=== PATIENT | male | born 1955 | race Caucasian/White ===

== ENCOUNTER 2021-02-24 07:50 | Emergency (ER) | payer MEDICARE, OTHER ==
[2021-02-24 08:09] VITALS: BP 144/87
--- NOTE | 2021-02-24 09:30 | ED Physician Documentation ---
History of Present Illness - Stated complaint Stated Complaint: LT EYE PX - Chief complaint Chief Complaint: Heent - History obtained from History obtained from: Patient - Additonal information Additional information: 65-year-old man with past medical history of left eye blown pupil presents with left eye pain after scraping it with a branch a few days ago. He also has new swelling to the lower eyelid has become progressively more painful, gradual in onset. Denies new onset photophobia or difficulty moving the eye. Only mild irritation to the eye itself. More pain in the eyelid. Denies fever, abnormal discharge Review of Systems Eyes: reports: Irritation PD PAST MEDICAL HISTORY - Present Medications Home Medications: Ambulatory Orders Medication Instructions Recorded Confirmed Mineral Oil/Petrolatum,White 3.5 gm OP QPM #1 bottle 02/24/21 [Lubricant Pm Eye Ointment] Ofloxacin 0.3% Ophth Drops 1 drops OPTH Q4H #5 ml 02/24/21 [Ocuflox 0.3% Ophth Drops] - Allergies Allergies/Adverse Reactions: Allergies Allergy/AdvReac Type Severity Reaction Status Date / Time No Known Drug Allergies Allergy Verified 02/24/21 08:04 PD ED PE NORMAL - Vitals Vital signs reviewed: Yes - General General: Alert and oriented X 3, No acute distress, Well developed/nourished - HEENT HEENT: Atraumatic, PERRL, EOMI, Other (Left eye with 4 mm nonreactive pupil. Patient states this is at baseline. Extraocular movements intact. No abnormal discharge. Fluorescein exam with mild increased uptake to 3 o'clock position indicating a corneal abrasion. Hordeolum evident to lateral lower eyelid) - Derm Derm: Normal color, Warm and dry - Neuro Neuro: Alert and oriented X 3 - Psych Psych: Normal mood, Normal affect Results - Vitals Vitals: Vital Signs - 24 hr 02/24/21 08:04 Temperature 36.8 C Heart Rate 64 Respiratory 17 Rate Blood Pressure 144/87 H O2 Saturation 96 Oxygen O2 Source Room air PD MEDICAL DECISION MAKING - ED course ED course: 65-year-old man presented with corneal abrasion and hordeolum to the lower lateral eyelid. Antibiotic eyedrops prescribed, conservative measures discussed, patient will follow up with his primary doctor for referral to ophthalmology Impression 1 corneal abrasion 2 hordeolum Departure - Departure Disposition: 01 Home, Self Care Condition: Good Instructions: ED Hordeolum, ED Eye Injury Corneal Abrasion Prescriptions: Mineral Oil/Petrolatum,White [Lubricant Pm Eye Ointment] 3.5 gm OP QPM #1 bottle Ofloxacin 0.3% Ophth Drops [Ocuflox 0.3% Ophth Drops] 1 drops OPTH Q4H #5 ml Comments: You were seen in the emergency department for corneal abrasion on your eye as well as a stye or hordeolum. Apply warm compresses for 20 minutes every hour for relief of pain. Take ibuprofen as needed on a full stomach every 6 hours. Return to the emergency department if you have vision changes, worsening symptoms or other concerns. Follow-up with your primary doctor for referral to ophthalmology.
== END 2021-02-24 09:40 | disposition home or self-care (01) ==
LOC: ED 07:50
DX: S05.02XA Injury of conjunctiva and corneal abrasion without foreign body, left eye, initial encounter (principal); H00.015 Hordeolum externum left lower eyelid; W22.8XXA Striking against or struck by other objects, initial encounter; Y93.H2 Activity, gardening and landscaping; Y92.007 Garden or yard of unspecified non-institutional (private) residence as the place of occurrence of the external cause
CPT/HCPCS: 99281; 99282

== ENCOUNTER 2022-06-29 16:39 | Emergency (ER) | payer MEDICARE, OTHER ==
[2022-06-29 16:52] VITALS: BP 151/76
== END 2022-06-29 17:35 | disposition left against medical advice (07) ==
LOC: ED 16:39
DX: Z53.21 Procedure and treatment not carried out due to patient leaving prior to being seen by health care provider (principal)